=== PATIENT | male | born 1960 | race Caucasian/White ===

== ENCOUNTER 2016-06-22 21:03 | Emergency (ER) | payer BC ==
[2016-06-22] MEDS ORDERED: LIDOCAINE HCL 1% MPF SOL ONE (21:08)
[2016-06-22] MEDS: LIDOCAINE HCL 1% 50 MG/5 ML SOL INFIL ONE (21:45)
[2016-06-22] MEDS: CEPHALEXIN 250 MG/5 ML BOTTLE PO ONE (21:59)
[2016-06-22] MEDS: TDAP VACCINE 0.5 ML SUS IM ONE (22:07)
[2016-06-22] MEDS ORDERED: TDAP VACCINE 0.5 ML SUS IM ONE (22:09)
[2016-06-22 22:28] VITALS: BP 131/114; PULSE 95; RESP 16; TEMP 98; O2SAT 99
== END 2016-06-22 22:20 | disposition home or self-care (01) ==
LOC: ED 21:03
DX: S61.215A Laceration without foreign body of left ring finger without damage to nail, initial encounter (principal); W45.8XXA Other foreign body or object entering through skin, initial encounter
CPT/HCPCS: 12002; 90715; 99284; J2001; 90471

== ENCOUNTER 2016-06-24 12:26 | Emergency (ER) | payer BC ==
[2016-06-24 12:26] VITALS: O2SAT 99
[2016-06-24] MEDS ORDERED: CEFTRIAXONE 1 GM PDS IM ONE (12:46)
[2016-06-24] MEDS ORDERED: BACITRACIN 500 U/GM OIN TOP ONE ×2 (12:50→12:52)
[2016-06-24] MEDS ORDERED: LIDOCAINE HCL 1% MPF SOL ONE (12:52)
[2016-06-24] MEDS ORDERED: CEFTRIAXONE 1 GM PDS ONE (12:52)
[2016-06-24 13:46] VITALS: BP 116/93; PULSE 102; RESP 16; TEMP 97.3
== END 2016-06-24 13:31 | disposition home or self-care (01) ==
LOC: ED 12:26
DX: S61.217D Laceration without foreign body of left little finger without damage to nail, subsequent encounter (principal)
CPT/HCPCS: 99283 ×2; J0696; J2001